=== PATIENT | female | born 1995 | race Caucasian/White ===

== ENCOUNTER → 2018-05-01 16:39 | Outpatient (CLI) | payer OTHER, SELFPAY ==
[2018-05-01 17:44] LABS: Absolute Lymphocyte Count 1.42 X10^3/ul (0.83-4.51); Absolute Neutrophil Count 2.8 X10^3/uL (2.0-7.7); Basophil# 0.01 X10^3/uL; Basophil% 0.2 % (0-1); Eosinophil# 0.01 X10^3/uL; Eosinophils% 0.2 % (0-5); Hematocrit 37.7 % (37-47); Hemoglobin 12.1 g/dl (12.0-15.0); Lymphocyte # 1.42 X10^3/ul (4.0); Lymphocyte % 28.9 % (19-41); Mean Corp Hgb Conc 32.1 g/gl (32-36); Mean Corpuscular Volume 93.3 fL (81-99); Mean Platelet Vol. 10.8 fl (6.2-12.0); Monocyte# 0.64 X10^3/uL; Neutrophil # 2.84 X10^3/uL (2.7-7.7); Neutrophil % 57.7 % (47-70); Platelet Count 176 K/mm3 (150-450); RBC Distribution Width CV 12.7 % (11.6-14.6); RBC Distribution Width SD 43.7 fl (35.1-43.9); Red Blood Count 4.04 M/mm3 (4.2-5.4); White Blood Count 4.9 K/mm3 (4.4-11.0)
[2018-05-01 17:54] LABS: POSITIVE COUNT NO; POSITIVE DIFFERENTIAL NO; POSITIVE MORPHOLOGY NO
[2018-05-01 18:00] LABS: AST(SGOT) 11 U/L (15-37); Alanine Aminotransfer ALT/SGPT 20 U/L (13-56); Alkaline Phosphatase 30 U/L (45-117); BUN 11 mg/dL (7-18); Creatinine, Serum 0.63 mg/dL (0.55-1.02); EST Glomerular Filtration Rate 122 mL/min (>60); Est Glom Filt Rate - Afr Amer 147 mL/min (>60)
== END ==
PROVIDERS: Family Provider Family Medicine; PCP Family Medicine
DX: M32.9 Systemic lupus erythematosus, unspecified (principal)
CPT/HCPCS: 82565; 84075; 84450; 84460; 84520; 85025

== ENCOUNTER → 2018-07-11 16:41 | Outpatient (CLI) | payer OTHER, SELFPAY ==
[2018-07-11 16:56] LABS: Bacteria 0 SEEN /hpf (None Seen); Mucous, Urine 0 SEEN /hpf (<or=2+); Red Blood Cells-Urine 0 SEEN /hpf (0-5); White Blood Cells 0 SEEN /hpf (0-5)
[2018-07-11 17:34] LABS: Absolute Neutrophil Count 2.4 X10^3/uL (2.0-7.7); Basophil# 0.01 X10^3/uL; Basophil% 0.2 % (0-1); Eosinophil# 0.01 X10^3/uL; Eosinophils% 0.2 % (0-5); Hematocrit 37.5 % (37-47); Hemoglobin 12.3 g/dl (12.0-15.0); Lymphocyte % 26.6 % (19-41); Mean Corp Hgb Conc 32.8 g/gl (32-36); Mean Corpuscular Hgb 30.4 pg (27.0-32.0); Mean Corpuscular Volume 92.6 fL (81-99); Mean Platelet Vol. 10.9 fl (6.2-12.0); Monocyte# 0.61 X10^3/uL; Monocyte% 14.8 % (0-10); Neutrophil % 58.2 % (47-70); Platelet Count 181 K/mm3 (150-450); RBC Distribution Width CV 12.5 % (11.6-14.6); RBC Distribution Width SD 42.2 fl (35.1-43.9); Red Blood Count 4.05 M/mm3 (4.2-5.4); White Blood Count 4.1 K/mm3 (4.4-11.0)
[2018-07-11 17:47] LABS: Color, Urine Yellow (Yellow); Erythrocyte Sedimentation Rate 1 mm/hr (0-20); Glucose, Dipstick Normal (Normal); Ketone-Dipstick Negative (Negative); Leukocyte Esterase-Dipstick Negative /ul (Negative); Nitrite-Dipstick Negative (Negative); Occult Blood-Urine Negative /ul (Negative); Protein-Dipstick 15 mg/dl (Negative); Urine Bilirubin Dipstick Negative (Negative); Urine Clarity Clear (Clear); Urine Urobilinogen Normal (Normal)
[2018-07-11 17:51] LABS: POSITIVE COUNT NO; POSITIVE DIFFERENTIAL NO; POSITIVE MORPHOLOGY NO
[2018-07-11 18:03] LABS: AST(SGOT) 11 U/L (15-37); Alanine Aminotransfer ALT/SGPT 18 U/L (13-56); Alkaline Phosphatase 30 U/L (45-117); BUN 12 mg/dL (7-18); CRP < 2.90 mg/L (0.0-3.0); Creatinine, Serum 0.68 mg/dL (0.55-1.02); EST Glomerular Filtration Rate 111 mL/min (>60); Est Glom Filt Rate - Afr Amer 134 mL/min (>60); Squamous Epithelial Cells - UA 0-5 SEEN /hpf (5-10)
[2018-07-15 16:25] LABS: Anti-dsDNA Ab <1 IU/mL (0-9)
[2018-07-16 11:19] LABS: Complement C3 109 mg/dL (82-167)
== END ==
PROVIDERS: Family Provider Family Medicine; PCP Family Medicine
DX: M32.9 Systemic lupus erythematosus, unspecified (principal)
CPT/HCPCS: 36415; 81001; 82565; 84075; 84450; 84460; 84520; 85025; 85652; 86140; 86160; 86225

== ENCOUNTER → 2019-03-07 | Outpatient (CLI) | payer OTHER, SELFPAY ==
[2019-03-07 17:31] LABS: Absolute Lymphocyte Count 0.98 X10^3/ul (0.83-4.51); Absolute Neutrophil Count 2.1 X10^3/uL (2.0-7.7); Basophil# 0.01 X10^3/uL; Basophil% 0.3 % (0-1); Eosinophil# 0.03 X10^3/uL; Eosinophils% 0.8 % (0-5); Hematocrit 36.3 % (37-47); Hemoglobin 12.3 g/dl (12.0-15.0); Lymphocyte # 0.98 X10^3/ul (4.0); Lymphocyte % 26.6 % (19-41); Mean Corp Hgb Conc 33.9 g/gl (32-36); Mean Corpuscular Hgb 31.9 pg (27.0-32.0); Mean Platelet Vol. 11.1 fl (6.2-12.0); Monocyte# 0.57 X10^3/uL; Monocyte% 15.5 % (0-10); Neutrophil # 2.08 X10^3/uL (2.7-7.7); Neutrophil % 56.5 % (47-70); Platelet Count 141 K/mm3 (150-450); RBC Distribution Width CV 12.7 % (11.6-14.6); RBC Distribution Width SD 42.7 fl (35.1-43.9); Red Blood Count 3.86 M/mm3 (4.2-5.4); White Blood Count 3.7 K/mm3 (4.4-11.0)
[2019-03-07 17:42] LABS: POSITIVE COUNT NO; POSITIVE DIFFERENTIAL NO; POSITIVE MORPHOLOGY NO
[2019-03-07 17:51] LABS: Erythrocyte Sedimentation Rate 2 mm/hr (0-20)
[2019-03-07 18:31] LABS: AST(SGOT) 9 U/L (15-37); Alanine Aminotransfer ALT/SGPT 16 U/L (13-56); Alkaline Phosphatase 34 U/L (45-117); BUN 12 mg/dL (7-18); CRP < 2.90 mg/L (0.0-3.0); Creatinine, Serum 0.56 mg/dL (0.55-1.02); EST Glomerular Filtration Rate 138 mL/min (>60); Est Glom Filt Rate - Afr Amer 167 mL/min (>60)
== END | disposition home or self-care (01) ==
LOC: MTLAB 16:46
PROVIDERS: Family Provider Family Medicine; PCP Family Medicine
DX: M32.9 Systemic lupus erythematosus, unspecified (principal)
CPT/HCPCS: 36415; 82565; 84075; 84450; 84460; 84520; 85025; 85652; 86140

== ENCOUNTER → 2020-01-09 | Outpatient (CLI) | payer OTHER, SELFPAY ==
[2020-01-09 18:16] LABS: Chlamydia Trachomatis by PCR Negative (Negative); Neisserai gonorrhoeae by PCR Negative (Negative); Probe Check PASS; Sample Adequacy Control PASS; Specimen Processing Control PASS
== END | disposition home or self-care (01) ==
LOC: LABSPEC 15:31
PROVIDERS: Referring Provider Obstetrics & Gynecology; Visit Provider Obstetrics & Gynecology
DX: Z11.3 Encounter for screening for infections with a predominantly sexual mode of transmission (principal); Z34.81 Encounter for supervision of other normal pregnancy, first trimester
CPT/HCPCS: 87491; 87591

== ENCOUNTER → 2020-01-16 15:23 | Outpatient (CLI) | payer OTHER, SELFPAY ==
[2020-01-16 16:00] LABS: Absolute Lymphocyte Count 0.51 X10^3/uL (0.83-4.51); Absolute Neutrophil Count 3.3 X10^3/uL (2.0-7.7); Basophil# 0.01 X10^3/uL; Basophil% 0.2 % (0-1); Color, Urine Yellow (Yellow); Glucose, Dipstick Normal (Normal); Hematocrit 35.8 % (37-47); Hemoglobin 12.2 g/dL (12.0-15.0); Ketone-Dipstick Negative (Negative); Leukocyte Esterase-Dipstick Negative /ul (Negative); Lymphocyte # 0.51 X10^3/ul (4.0); Lymphocyte % 11.9 % (19-41); Mean Corp Hgb Conc 34.1 g/dL (32-36); Mean Corpuscular Hgb 31.9 pg (27.0-32.0); Mean Corpuscular Volume 93.7 fL (81-99); Mean Platelet Vol. 10.4 fl (6.2-12.0); Monocyte# 0.48 X10^3/uL; Monocyte% 11.2 % (0-10); NRBC Flagged by Analyzer 0 % (0-5); Neutrophil # 3.25 X10^3/uL (2.7-7.7); Neutrophil % 76.2 % (47-70); Nitrite-Dipstick Negative (Negative); Occult Blood-Urine Negative /ul (Negative); POSITIVE DIFFERENTIAL YES; Platelet Count 179 K/mm3 (150-450); Protein-Dipstick Negative (Negative); RBC Distribution Width CV 12.7 % (11.6-14.6); RBC Distribution Width SD 43.6 fl (35.1-43.9); Red Blood Count 3.82 M/mm3 (4.2-5.4); Specific Gravity, Urine 1.015 (1.002-1.030); Urine Bilirubin Dipstick Negative (Negative); Urine Clarity Sl. Cloudy (Clear); Urine Urobilinogen Normal (Normal); Urine pH 6.5 (5.0 - 8.0); White Blood Count 4.3 K/mm3 (4.4-11.0)
[2020-01-16 16:02] LABS: Differential Indicated SCAN CRITERIA MET
[2020-01-16 16:12] LABS: Amphetamine Urine VISTA NEGATIVE (<1000 ng/mL); Barbiturate Urine VISTA NEGATIVE (< 200 ng/mL); Benzodiazepine Urine VISTA NEGATIVE (< 200 ng/mL); Cocaine Urine VISTA NEGATIVE (< 300 ng/mL); Ecstacy Urine VISTA NEGATIVE (< 500 ng/mL); Methadone Urine VISTA NEGATIVE (< 300 ng/mL); PCP Urine VISTA NEGATIVE (< 25 ng/mL); THC Urine VISTA NEGATIVE (< 50 ng/mL); Vista UDS pH Range 6
[2020-01-16 16:15] LABS: Protein, Urine (Random) 18.9 mg/dL (<11.9); Protein:Creat Ratio 296 mg/g CRE (0-200)
[2020-01-16 16:34] LABS: AST(SGOT) 10 U/L (15-37); Alanine Aminotransfer ALT/SGPT 17 U/L (13-56); Albumin, Serum 3.8 g/dL (3.2-5.0); Alkaline Phosphatase 34 U/L (45-117); Anion Gap 6 (5-15); BUN 12 mg/dL (7-18); BUN/Creat Ratio 26.1 RATIO (10-20); Calcium,Total 8.5 mg/dL (8.5-10.1); Chloride 105 mmol/L (98-107); Creatinine, Serum 0.46 mg/dL (0.55-1.02); EST Glomerular Filtration Rate 174 mL/min (>60); Est Glom Filt Rate - Afr Amer 210 mL/min (>60); Globulin 3.9 g/dL (2.2-4.2); Glucose 93 mg/dL (74-106); Potassium 3.5 mmol/L (3.5-5.1); Protein, Total 7.7 g/dL (6.4-8.2); Sodium Level 138 mmol/L (136-145); Thyroid Stim Hormone (TSH) 0.82 uIU/mL (0.358-3.74)
[2020-01-16 16:45] LABS: Platelet Estimate ADEQUATE (ADEQ)
[2020-01-16 16:46] LABS: Anisocytosis RARE; Red Cell Morphology N CHROM NORMAL (NORM C&C)
[2020-01-18 08:10] LABS: Complement C3 86 mg/dL (82-167)
[2020-01-19 09:07] LABS: HIV - WCH Non-Reactive (Nonreactive); Hepatitis B Surface Antigen Non-Reactive (Nonreactive); Hepatitis C Antibody Non-Reactive (Nonreactive); Rubella IgG 22.5 IU/mL
[2020-01-19 10:24] LABS: Pathologist Review Reviewed
[2020-01-19 14:07] LABS: SJOGREN'S Anti-SS-A test > 8.0 AI (0.0-0.9)
[2020-01-19 15:01] LABS: SJOGREN'S Anti-SS-B test > 8.0 AI (0.0-0.9)
[2020-01-21 23:59] LABS: Prenatal RPR NONREACTIVE (NONREACTIVE)
== END ==
PROVIDERS: PCP Family Medicine; Referring Provider Obstetrics & Gynecology; Visit Provider Obstetrics & Gynecology
DX: O99.89 Other specified diseases and conditions complicating pregnancy, childbirth and the puerperium (principal); M32.9 Systemic lupus erythematosus, unspecified; Z3A.00 Weeks of gestation of pregnancy not specified
CPT/HCPCS: 36415; 80053; 80307; 81002; 82570; 84156; 84443; 85025; 86160; 86235; 86703; 86762; 86803; 87340

== ENCOUNTER → 2020-02-09 10:25 | Outpatient (CLI) | payer OTHER, SELFPAY ==
[2020-02-09 11:39] LABS: NATERA MAILED SPECIMEN
== END ==
PROVIDERS: PCP Family Medicine
DX: O09.899 Supervision of other high risk pregnancies, unspecified trimester (principal); O99.89 Other specified diseases and conditions complicating pregnancy, childbirth and the puerperium; M32.9 Systemic lupus erythematosus, unspecified; Z3A.00 Weeks of gestation of pregnancy not specified
CPT/HCPCS: 36415

== ENCOUNTER → 2020-02-11 15:07 | Outpatient (CLI) | payer OTHER, SELFPAY ==
[2020-02-11 17:14] LABS: Glucose Challenge Gest 1H 50g 152 mg/dL (70-140)
== END ==
PROVIDERS: PCP Family Medicine; Referring Provider Obstetrics & Gynecology; Visit Provider Obstetrics & Gynecology
DX: Z34.81 Encounter for supervision of other normal pregnancy, first trimester (principal)
CPT/HCPCS: 36415; 82950

== ENCOUNTER → 2020-02-25 06:42 | Outpatient (CLI) | payer OTHER, SELFPAY ==
[2020-02-25 07:18] LABS: Glucose GTT-Gestation. Fasting 83 mg/dL (<105)
[2020-02-25 08:19] LABS: Glucose GTT-Gestational 1 Hr 126 mg/dL (<190)
[2020-02-25 09:43] LABS: Glucose GTT-Gestational 2 Hr 92 mg/dL (<165)
[2020-02-25 10:35] LABS: Glucose GTT-Gestational 3 Hr 50 L (<145)
== END ==
PROVIDERS: PCP Family Medicine; Referring Provider Obstetrics & Gynecology; Visit Provider Obstetrics & Gynecology
DX: O24.912 Unspecified diabetes mellitus in pregnancy, second trimester (principal)
CPT/HCPCS: 36415; 82951; 82952

== ENCOUNTER → 2020-03-17 16:33 | Outpatient (CLI) | payer OTHER, SELFPAY ==
[2020-03-17 18:18] LABS: Absolute Lymphocyte Count 0.54 X10^3/uL (0.83-4.51); Absolute Neutrophil Count 4.3 X10^3/uL (2.0-7.7); Basophil# 0.01 X10^3/uL; Basophil% 0.2 % (0-1); Eosinophil# 0.01 X10^3/uL; Eosinophils% 0.2 % (0-5); Hematocrit 34.1 % (37-47); Hemoglobin 11.3 g/dL (12.0-15.0); Lymphocyte # 0.54 X10^3/ul (4.0); Lymphocyte % 9.9 % (19-41); Mean Corp Hgb Conc 33.1 g/dL (32-36); Mean Corpuscular Hgb 32.7 pg (27.0-32.0); Mean Corpuscular Volume 98.6 fL (81-99); Mean Platelet Vol. 10.3 fl (6.2-12.0); Monocyte# 0.56 X10^3/uL; Monocyte% 10.3 % (0-10); NRBC Flagged by Analyzer 0 % (0-5); Neutrophil # 4.29 X10^3/uL (2.7-7.7); POSITIVE DIFFERENTIAL YES; Platelet Count 214 K/mm3 (150-450); RBC Distribution Width CV 13.3 % (11.6-14.6); Red Blood Count 3.46 M/mm3 (4.2-5.4); White Blood Count 5.4 K/mm3 (4.4-11.0)
[2020-03-17 18:26] LABS: Differential Indicated SCAN CRITERIA MET
[2020-03-17 18:27] LABS: Color, Urine Yellow (Yellow); Glucose, Dipstick Normal (Normal); Ketone-Dipstick Negative (Negative); Leukocyte Esterase-Dipstick Negative /ul (Negative); Nitrite-Dipstick Negative (Negative); Occult Blood-Urine Negative /ul (Negative); Protein-Dipstick Negative (Negative); Urine Bilirubin Dipstick Negative (Negative); Urine Clarity Clear (Clear); Urine Urobilinogen Normal (Normal)
[2020-03-17 18:30] LABS: Protein, Urine (Random) 7.7 mg/dL (<11.9); Protein:Creat Ratio 213 mg/g CRE (0-200)
[2020-03-17 18:41] LABS: AST(SGOT) 13 U/L (15-37); Alanine Aminotransfer ALT/SGPT 18 U/L (13-56); Alkaline Phosphatase 33 U/L (45-117); BUN 9 mg/dL (7-18); CRP < 2.90 mg/L (0.0-3.0); Creatinine, Serum 0.48 mg/dL (0.55-1.02); EST Glomerular Filtration Rate 164 mL/min (>60); Est Glom Filt Rate - Afr Amer 198 mL/min (>60)
[2020-03-17 18:49] LABS: Vitamin D,25 Hydroxy 38.2 ng/mL
[2020-03-17 19:24] LABS: Platelet Estimate ADEQUATE (ADEQ); Red Cell Morphology NORM C+C NORMAL (NORM C&C)
[2020-03-17 20:35] LABS: Erythrocyte Sedimentation Rate 4 mm/hr (0-20)
[2020-03-19 12:33] LABS: Complement C3 98 mg/dL (82-167)
[2020-03-22 05:26] LABS: Anti-dsDNA Ab <1 IU/mL (0-9)
== END ==
PROVIDERS: PCP Family Medicine
DX: M32.9 Systemic lupus erythematosus, unspecified (principal)
CPT/HCPCS: 36415; 81002; 82306; 82565; 82570; 84075; 84156; 84450; 84460; 84520; 85025; 85652; 86140; 86160; 86225

== ENCOUNTER → 2020-05-27 06:51 | Outpatient (CLI) | payer OTHER, SELFPAY | PROVIDERS: PCP Family Medicine; Referring Provider Obstetrics & Gynecology; Visit Provider Obstetrics & Gynecology | DX: O99.113 Other diseases of the blood and blood-forming organs and certain disorders involving the immune mechanism complicating pregnancy, third trimester (principal); M32.9 Systemic lupus erythematosus, unspecified; O99.810 Abnormal glucose complicating pregnancy; Z3A.00 Weeks of gestation of pregnancy not specified ==

== ENCOUNTER → 2020-05-27 06:58 | Outpatient (CLI) | payer OTHER, SELFPAY ==
[2020-05-27 07:48] LABS: Glucose GTT-Gestation. Fasting 82 mg/dL (<105)
[2020-05-27 08:54] LABS: Glucose GTT-Gestational 1 Hr 109 mg/dL (<190)
[2020-05-27 09:25] LABS: Glucose GTT-Gestational 2 Hr 81 mg/dL (<165)
[2020-05-27 11:08] LABS: Glucose GTT-Gestational 3 Hr 43 L (<145)
== END ==
PROVIDERS: PCP Family Medicine; Referring Provider Obstetrics & Gynecology; Visit Provider Obstetrics & Gynecology
DX: O99.113 Other diseases of the blood and blood-forming organs and certain disorders involving the immune mechanism complicating pregnancy, third trimester (principal); M32.9 Systemic lupus erythematosus, unspecified; O99.810 Abnormal glucose complicating pregnancy; Z3A.00 Weeks of gestation of pregnancy not specified
CPT/HCPCS: 36415; 82951; 82952

== ENCOUNTER → 2020-06-11 09:36 | Outpatient (CLI) | payer OTHER, SELFPAY ==
[2020-06-11 10:50] LABS: AST(SGOT) 16 U/L (15-37); Alanine Aminotransfer ALT/SGPT 18 U/L (13-56); Albumin, Serum 2.7 g/dL (3.2-5.0); Alkaline Phosphatase 55 U/L (45-117); Bilirubin, Direct 0.11 mg/dL (0.00-0.30); Globulin 4.3 g/dL (2.2-4.2)
== END ==
PROVIDERS: PCP Family Medicine; Visit Provider Student in an Organized Health Care Education/Training Program
DX: O99.713 Diseases of the skin and subcutaneous tissue complicating pregnancy, third trimester (principal); L50.9 Urticaria, unspecified; Z3A.00 Weeks of gestation of pregnancy not specified
CPT/HCPCS: 36415; 80076; 86850; 86900; 86901

== ENCOUNTER → 2020-07-30 | Outpatient (CLI) | payer OTHER, SELFPAY | END | disposition home or self-care (01) | LOC: LABSPEC 10:50 | PROVIDERS: PCP Family Medicine; Visit Provider Obstetrics & Gynecology | DX: Z36.85 Encounter for antenatal screening for Streptococcus B (principal) | CPT/HCPCS: 87081 ==

== ENCOUNTER → 2020-08-13 09:25 | Outpatient (CLI) | payer OTHER, SELFPAY | PROVIDERS: PCP Family Medicine; Referring Provider Obstetrics & Gynecology; Visit Provider Obstetrics & Gynecology | DX: Z03.818 Encounter for observation for suspected exposure to other biological agents ruled out (principal) | CPT/HCPCS: 87635; C9803; U0003 ==

== ENCOUNTER 2020-08-19 05:52 | Inpatient (IN) | payer OTHER, SELFPAY ==
[2020-08-19] VITALS (57 sets, daily range): BP systolic 112–143; BP diastolic 55–81; PULSE 74–107; TEMP 37.1–37.7; O2SAT 83–99; BMI 25.2
[2020-08-19] MEDS: Lactated Ringers 500 ML 999 ML IV (06:05)
[2020-08-19 06:34] LABS: Absolute Neutrophil Count 6.9 X10^3/uL (2.0-7.7); Basophil# 0.02 X10^3/uL; Basophil% 0.2 % (0-1); Eosinophil# 0.01 X10^3/uL; Eosinophils% 0.1 % (0-5); Hematocrit 37.9 % (37-47); Hemoglobin 13.3 g/dL (12.0-15.0); Lymphocyte % 6.1 % (19-41); Mean Corp Hgb Conc 35.1 g/dL (32-36); Mean Corpuscular Hgb 33.5 pg (27.0-32.0); Mean Corpuscular Volume 95.5 fL (81-99); Mean Platelet Vol. 11.4 fl (6.2-12.0); Monocyte# 0.71 X10^3/uL; Monocyte% 8.7 % (0-10); NRBC Flagged by Analyzer 0 % (0-5); Neutrophil % 84.5 % (47-70); POSITIVE DIFFERENTIAL YES; Platelet Count 236 K/mm3 (150-450); RBC Distribution Width CV 12.4 % (11.6-14.6); RBC Distribution Width SD 43.6 fl (35.1-43.9); Red Blood Count 3.97 M/mm3 (4.2-5.4); White Blood Count 8.2 K/mm3 (4.4-11.0)
[2020-08-19] MEDS: Lactated Ringers 1,000 ML 200 ML IV ×3 (06:36→16:35)
[2020-08-19 06:54] LABS: Differential Indicated SCAN CRITERIA MET
--- NOTE | 2020-08-19 06:59 | PCM.HP.OB ---
- Problem List (1) 39 weeks gestation of Status: Acute (2) SLE (systemic lupus erythematosus) Status: Acute Qualifiers: Systemic lupus erythematosus type: unspecified History Date of Admission: 08/19/20 Final GUADALUPE: 08/26/20 Final GUAD[facility]UPE Source: [place] <20 weeks Gestational age: 39 Weeks and 0 Days History of this : This is a 25 year-old, G [1], P [], at 39 weeks gestational age with hx SLE on chronic steroid therapy presenting with painful contractions. Medical History: Medical History (This Medical Record has been edited. Action required.) SLE (systemic lupus erythematosus) M32.9 +Anti SSA/SSB Allergies No Known Allergies Allergy (Verified 08/19/20 04:02) Home Medications: Home Medications Azathioprine [Imuran] 150 mg PO DAILY@0800 08/19/20 Plaquenil 200 mg PO DAILY 08/19/20 Prednisone 1 tab PO DAILY 08/19/20 Smoking Status: Never smoker Alcohol: None Substance Use Type: Sleep Aides Number of Fetus(es): 1 History Past Pregnancies: Past Pregnancies Delivery Date Name GA/ Weeks Outcome Route Wt Infant Sex Labor Length Anesthesia Delivery Location Provider FOB Labs: Mom's Labs & Results 08/19/20 08/19/20 06:05 06:05 WBC 8.2 RBC 3.97 L Hgb 13.3 Hct 37.9 MCV 95.5 MCH 33.5 H MCHC 35.1 RDW Std Deviation 43.6 RDW Coeff of Yasir 12.4 Plt Count 236 MPV 11.4 Immature Gran % (Auto) 0.400 Neut % (Auto) 84.5 H Lymph % (Auto) 6.1 L [place] % (Auto) 8.7 Eos % (Auto) 0.1 Baso % (Auto) 0.2 Absolute Neuts (auto) 6.9 Absolute Lymphs (auto) 0.50 L Nucleated RBC % 0 Blood Type Pending Antibody Screen Pending Course Did the patient receive Yes care? Labs Blood Type: AB RH: POSITIVE RPR/VDRL/Syphilis Nonreactive Rubella status Immune HbSAg Negative Date Done: 01/16/20 Chlamydia Negative Gonorrhea Negative HIV/AIDS Non-Reactive Group B Strep: Negative Current Obstetrical History Gestational Diabetes No Incompetent Cervix No Infertility No IUGR No Macrosomia No Hypertension/Pre-eclampsia No Placenta Previa/Abruption No PTL/PROM No Uterine anomaly No Oligohydramnios No Polyhydramnios No Multiple gestation No Past Medical History Asthma No Diabetes No Hypertension No Heart disease No Mitral valve prolapse No Neurologic/Seizure disorder/ No Migraines Kidney disease No Liver disease No Varicosities Yes Clotting disorders/Hx of DVT No Thyroid Dysfunction No Other medical diseases Yes: Lupus Psychiatric disorders No Major trauma No Abnormal PAP smear No Sleep apnea No Mammogram in the last 2 years No Social History Marital Status: Alleged father Martinez Moya Hx Smoking No Smoking Status Never smoker Substance Use Type Sleep Aides How long have you used since taking Unisom, takes 1-2/week substances (years)? What date/time did you last 08/18/200 use any of the above? Expected Delivery Method: Spontaneous Vaginal Number of Visits: 11 Physical Exam Vitals: Vital Signs Pulse BP Pulse Ox 90 130/77 H 98 08/19/20 04:47 08/19/20 04:47 08/19/20 03:34 Assessment/Plan All Active Problems (This Medical Record has been edited. Action required.) 39 weeks gestation of (Acute) SLE (systemic lupus erythematosus) (Acute) This is a 25 year-old, G [1], P [], at 39 weeks gestational age. -Stress dose steroids - Epidural per patient request - GBS neg - Maternal and statuses reassuring
[2020-08-19 07:03] LABS: Differential Comment SCANNED
[2020-08-19] MEDS: Hydrocortisone Sod Succinate 100 MG/2 ML Vial 50 MG IV ×3 (08:06→20:35)
[2020-08-19] MEDS: fentaNYL-bupivacaine (epidural) 100 ML BAG EPIDURAL ×3 (08:15→18:56)
--- NOTE | 2020-08-19 13:07 | PCM.PN.BLA ---
Progress Note LABOR PROGRESS NOTE Comfortable with epidural. No complaints. AVSS GEN - NAD, AAO x 3 FHR 135, moderate variability, + accelerations, no decelerations TOCO 3/10 min SVE 6/90/-2, soft and anterior A/P: 25yo G1 @ 39wga, active labor, Cat I FHR -Amniotomy performed with clear fluid -Continue in labor -Maternal and statuses reassuring STROKE Vital Signs/Narrative: Vital Signs Temp Pulse BP Pulse Ox 08/19/20 13:05 99.5 F H 74 114/58 L 96 08/19/20 12:08 99.8 F H 89 96 08/19/20 12:07 90 112/60 08/19/20 11:00 99.5 F H 96 125/73 H 08/19/20 09:51 99.1 F 91 124/63 H 08/19/20 09:15 99.5 F H 08/19/20 09:12 86 97 08/19/20 09:11 81 123/61 H
[2020-08-19] MEDS: Oxytocin 30 units/NS 500 ml 30 UNITS/500 ML IV.SOLN 334 UNITS IV (20:23)
[2020-08-19] MEDS: 0.9% Saline Lock 10 ML Syringe IV (20:35)
--- NOTE | 2020-08-19 21:08 | OP.PCM_ITS ---
Vaginal Delivery Date of Procedure: 08/19/20 Pre-Operative Diagnosis: Term Post-Operative Diagnosis: Term Surgery/ Procedure Performed: Spontaneous Vaginal Delivery Type of Anesthesia: Epidural Description of Procedure: Normal spontaneous vaginal delivery of a viable female infant, vertex TERRY. Head and shoulders delivered with ease. Cord cut and clamped. Baby handed off to nursing. Placenta delivered via cord traction and fundal massage. Second- degree laceration and bilateral labial laceration noted and repaired in typical fashion. EBL 400 cc Apgars 8/9
--- NOTE | 2020-08-19 21:10 | DCINST_ITS ---
<Renato Moya - Last Filed: 08/19/20 21:10> Discharge Diet: No Restrictions Discharge Activity: Return to Normal Activity, No Restrictions, May Drive, May Shower May resume sexual activity in: 2 weeks Weight Bearing Status: Weight bearing as tolerated Call your doctor if your incision/area has: Foul Smelling Discharge Call your doctor if you observe: Fever of 101 or Higher, Shortness of breath, Chest pain Additional Instructions: If you experience any of the following, contact your healthcare provider. * Bleeding that soaks a pad every hour for 2 hours * Fever 100.4 or higher * Unrelieved incision or abdominal pain * Swelling, redness, discharge or bleeding from your incision or episiotomy site * Your incision begins to separate * Problems urinating (including inability to urinate or burning while urinating). * Visual changes * Severe headache * Flu-like symptoms * Pain or redness in one of both of your breasts * Pain, warmth, tenderness or swelling in your legs, especially the calf area * Frequent nausea and vomiting * Symptoms of depression or anxiety If you experience any of the following, call 911 or go to the nearest Emergency Room. * Chest pain * Problems breathing * Seizure activity * Partial or complete paralysis of a body part, slurred speech, weakness or drooping of the face, or a sudden inability to walk or hold your balance Allergies/Adverse Reactions: Allergies No Known Allergies Allergy (Verified 08/19/20 04:02) Medications to take at Discharge Azathioprine [Imuran] 150 mg PO DAILY@0800 08/19/20 Plaquenil 200 mg PO DAILY 08/19/20 Prednisone 1 tab PO DAILY 08/19/20 Ibuprofen [Motrin] 600 mg PO Q8H PRN #30 tab 08/21/20 Please Follow Up With: Pallavi Mcclellan MD When: 6 weeks Primary Care Physician: Kike Degroot MD [Primary Care Provider] - Test Results: Test results from this visit will be discussed in further detail at your follow- up appointment, if applicable. <Pallavi Mcclellan - Last Filed: 08/21/20 08:02> Additional Instructions: If you experience any of the following, contact your healthcare provider. * Bleeding that soaks a pad every hour for 2 hours * Fever 100.4 or higher * Unrelieved incision or abdominal pain * Swelling, redness, discharge or bleeding from your incision or episiotomy site * Your incision begins to separate * Problems urinating (including inability to urinate or burning while urinating). * Visual changes * Severe headache * Flu-like symptoms * Pain or redness in one of both of your breasts * Pain, warmth, tenderness or swelling in your legs, especially the calf area * Frequent nausea and vomiting * Symptoms of depression or anxiety If you experience any of the following, call 911 or go to the nearest Emergency Room. * Chest pain * Problems breathing * Seizure activity * Partial or complete paralysis of a body part, slurred speech, weakness or drooping of the face, or a sudden inability to walk or hold your balance Please Follow Up With: Pallavi Mcclellan MD - mood check When: 1-3 weeks Test Results: Test results from this visit will be discussed in further detail at your follow- up appointment, if applicable.
[2020-08-19] MEDS: Ibuprofen 600 MG Tablet PO (22:08)
[2020-08-20 00:47] VITALS: BP 114/63; PULSE 90; RESP 16; TEMP 37.1; O2SAT 95
[2020-08-20 03:07] VITALS: BP 114/59; PULSE 89; RESP 16; TEMP 36.9
[2020-08-20] MEDS: 0.9% Saline Lock 10 ML Syringe IV (05:03)
[2020-08-20] MEDS: Enoxaparin 40 MG/0.4 ML Syringe SC (05:03)
[2020-08-20] MEDS: Hydrocortisone Sod Succinate 100 MG/2 ML Vial 25 MG IV (05:03)
[2020-08-20 07:50] VITALS: BP 118/66; PULSE 67; RESP 16; TEMP 36.3; O2SAT 98
--- NOTE | 2020-08-20 08:30 | PN.OBGYN_ITS ---
Patient Problems: Active and Suspected Problems (This Medical Record has been edited. Action required.) 39 weeks gestation of (Acute) SLE (systemic lupus erythematosus) (Acute) Subjective: No issues overnight. Infant latches and is going well. Denies heavy lochia. She has some cramping and is sore a the perineum, but this is manageable. OOB and voiding without difficulty. Objective: AVSS - Physical Exam Vitals/I&O's: Vital Signs Temp Pulse Resp BP Pulse Ox 98.0 F 80 15 112/72 99 08/20/20 16:00 08/20/20 16:00 08/20/20 16:00 08/20/20 16:00 08/20/20 11:33 Oxygen Delivery Method Room Air Weight: 84.368 kg Body Mass Index (BMI) 25.2 Intake and Output for Last 24 Hours 08/18/20 08/19/20 08/20/20 23:59 23:59 23:59 Intake Total 4798.33 / 4798.33 Output Total 2100 / 2100 800 / 800 Balance 2698.33 / 2698.33 -800 / -800 General: Alert, Oriented x3, Cooperative, No apparent distress HEENT: Atraumatic, Normocephalic Lungs: Clear to auscultation, Normal air movement Cardiovascular: Regular rate, Regular Rhythm, Normal S1, Normal S2 Abdomen: Soft, Non Tender, Non-Distended, - - Fundus firm and nontender at 2 fw below umbilicus, lochia moderate Extremities: No Calf Tenderness, - - trace LE edema Neurological: Neuro grossly intact Psych/Mental Status: Normal Affect, Appropriate, Alert and oriented to time, place, person, mood and affect Current Medications Acetaminophen (Acetaminophen 500 Mg Tablet) 1,000 mg PO Q8H PRN PRN PRN Reason: Pain Score 1-10 Last Admin: 08/20/20 14:12 Dose: 1,000 mg Documented by: Bisacodyl (Bisacodyl 10 Mg Suppository) 10 mg RECTAL UD PRN PRN Reason: If no BM Dibucaine (Dibucaine 30 Gm Tube) 1 applic TOPICAL TID PRN PRN; Protocol PRN Reason: Discomfort Enoxaparin Sodium (Enoxaparin 40 Mg/0.4 Ml Syringe) 40 mg SC Q24H [facility] Last Admin: 08/20/20 05:03 Dose: 40 mg Documented by: Hydrocortisone (Hydrocortisone 2.5% Crm) 1 applic TOPICAL TID PRN PRN; Protocol PRN Reason: Discomfort Ibuprofen (Ibuprofen 600 Mg Tablet) 600 mg PO Q6H PRN PRN PRN Reason: Pain Score 1-10 Last Admin: 08/20/20 09:22 Dose: 600 mg Documented by: Ondansetron HCl (Ondansetron 4 Mg/2 Ml Vial) 4 mg IV Q4H PRN PRN PRN Reason: Nausea Senna/Docusate Sodium (Senna/Docusate Sodium 1 Tablet) 1 - 2 tablet PO DAILY PRN PRN PRN Reason: Constipation Simethicone (Simethicone 80 Mg Tablet) 80 mg PO PCHS PRN PRN Reason: Indigestion/Stomach pain Sodium Chloride (0.9% Saline Lock 10 Ml Syringe) 5 - 15 ml IV UD PRN PRN Reason: SALINE FLUSH Last Admin: 08/20/20 05:03 Dose: 10 ml Documented by: Throat Lozenges (Benzocaine/Lanolin/Aloe Vera 1 Applic Each) 1 applic TOPICAL TID PRN PRN; Protocol PRN Reason: Pain/Inflammation Last Admin: 08/20/20 05:03 Dose: 1 applic Documented by: Medical Necessity - Tobacco Use Smoking Status: Never smoker Assessment/Plan All Active Problems (This Medical Record has been edited. Action required.) 39 weeks gestation of (Acute) SLE (systemic lupus erythematosus) (Acute) This is a 25 year-old, G [1], P [1001] PPD#1 s/p doing well. -Completed stress dose steroids. -Will continue Lovenox ppx inpatient given hx SLE - -Rh positive -Routine care
[2020-08-20] MEDS: Ibuprofen 600 MG Tablet PO ×2 (09:22→20:53)
[2020-08-20 11:33] VITALS: BP 115/50; PULSE 80; RESP 16; TEMP 36.8; O2SAT 99
[2020-08-20] MEDS: Acetaminophen 500 MG Tablet 1000 MG PO (14:12)
[2020-08-20 16:00] VITALS: BP 112/72; PULSE 80; RESP 15; TEMP 36.7
[2020-08-20 20:55] VITALS: BP 116/64; PULSE 92; RESP 16; TEMP 36.8
[2020-08-21 01:00] VITALS: BP 116/67; PULSE 78; RESP 16; TEMP 36.2
[2020-08-21] MEDS: Acetaminophen 500 MG Tablet 1000 MG PO ×2 (01:10→10:46)
[2020-08-21] MEDS: Ibuprofen 600 MG Tablet PO ×2 (02:33→10:44)
[2020-08-21] MEDS: Enoxaparin 40 MG/0.4 ML Syringe SC (05:12)
[2020-08-21 08:12] VITALS: BP 127/76; PULSE 84; RESP 14; TEMP 36.8
--- NOTE | 2020-08-21 09:16 | PN.OBGYN_ITS ---
Patient Problems: Active and Suspected Problems (This Medical Record has been edited. Action required.) 39 weeks gestation of (Acute) SLE (systemic lupus erythematosus) (Acute) Subjective: Feels fullness in the vaginal area when standing as if everything is falling out. Reports some swelling persists. No other complains. Denies heavy lochia or abdominal pain. Objective: avss - Physical Exam Vitals/I&O's: Vital Signs Temp Pulse Resp BP Pulse Ox 98.3 F 84 14 127/76 H 99 08/21/20 08:12 08/21/20 08:12 08/21/20 08:12 08/21/20 08:12 08/20/20 11:33 Oxygen Delivery Method Room Air Weight: 84.368 kg Body Mass Index (BMI) 25.2 Intake and Output for Last 24 Hours 08/19/20 08/20/20 08/21/20 23:59 23:59 23:59 Intake Total 4798.33 / 4798.33 Output Total 2100 / 2100 800 / 800 Balance 2698.33 / 2698.33 -800 / -800 General: Alert, Oriented x3, Cooperative, No apparent distress HEENT: Atraumatic, Normocephalic Lungs: Clear to auscultation, Normal air movement Cardiovascular: Regular rate, Regular Rhythm, Normal S1, Normal S2 Abdomen: Soft, Non Tender, Non-Distended, - - Fundus firm and nontender Extremities: No Calf Tenderness, - - b/l pedal, ankle edema - nonpitting Neurological: Neuro grossly intact Psych/Mental Status: Normal Affect, Appropriate, Alert and oriented to time, place, person, mood and affect Comment: Mild to moderate vulvar edema Current Medications Acetaminophen (Acetaminophen 500 Mg Tablet) 1,000 mg PO Q8H PRN PRN PRN Reason: Pain Score 1-10 Last Admin: 08/21/20 01:10 Dose: 1,000 mg Documented by: Bisacodyl (Bisacodyl 10 Mg Suppository) 10 mg RECTAL UD PRN PRN Reason: If no BM Dibucaine (Dibucaine 30 Gm Tube) 1 applic TOPICAL TID PRN PRN; Protocol PRN Reason: Discomfort Enoxaparin Sodium (Enoxaparin 40 Mg/0.4 Ml Syringe) 40 mg SC Q24H [facility] Last Admin: 08/21/20 05:12 Dose: 40 mg Documented by: Hydrocortisone (Hydrocortisone 2.5% Crm) 1 applic TOPICAL TID PRN PRN; Protocol PRN Reason: Discomfort Ibuprofen (Ibuprofen 600 Mg Tablet) 600 mg PO Q6H PRN PRN PRN Reason: Pain Score 1-10 Last Admin: 08/21/20 02:33 Dose: 600 mg Documented by: Ondansetron HCl (Ondansetron 4 Mg/2 Ml Vial) 4 mg IV Q4H PRN PRN PRN Reason: Nausea Senna/Docusate Sodium (Senna/Docusate Sodium 1 Tablet) 1 - 2 tablet PO DAILY PRN PRN PRN Reason: Constipation Simethicone (Simethicone 80 Mg Tablet) 80 mg PO PCHS PRN PRN Reason: Indigestion/Stomach pain Sodium Chloride (0.9% Saline Lock 10 Ml Syringe) 5 - 15 ml IV UD PRN PRN Reason: SALINE FLUSH Last Admin: 08/20/20 05:03 Dose: 10 ml Documented by: Throat Lozenges (Benzocaine/Lanolin/Aloe Vera 1 Applic Each) 1 applic TOPICAL TID PRN PRN; Protocol PRN Reason: Pain/Inflammation Last Admin: 08/20/20 05:03 Dose: 1 applic Documented by: Medical Necessity - Tobacco Use Smoking Status: Never smoker Assessment/Plan All Active Problems (This Medical Record has been edited. Action required.) 39 weeks gestation of (Acute) SLE (systemic lupus erythematosus) (Acute) This is a 25 year-old, G [1], P [1001] PPD#2 s/p doing well. - -Rh positive -Routine care -d/c home today
[2020-08-21 11:54] VITALS: BP 122/73; PULSE 100; RESP 14; TEMP 37.1
--- NOTE | 2020-08-25 17:28 | NURSING ---
mother doing well, breasts are full and baby is nursing well at the follow up phone call .
== END 2020-08-21 12:15 | disposition home or self-care (01) | DRG 807 ==
LOC: WPOUT 05:55 → WP 05:55
PROVIDERS: Admitting Provider Obstetrics & Gynecology; PCP Family Medicine; Referring Provider Obstetrics & Gynecology; Visit Provider Obstetrics & Gynecology
DX: O99.892 Other specified diseases and conditions complicating childbirth (principal); Z37.0 Single live birth; M32.9 Systemic lupus erythematosus, unspecified; O70.1 Second degree perineal laceration during delivery; Z3A.39 39 weeks gestation of pregnancy; Z79.52 Long term (current) use of systemic steroids
CPT/HCPCS: 59025; 59050; 85025; 86850; 86900; 86901; 99218; J7120; A4216; G0378; J3490

== ENCOUNTER 2021-12-16 15:13 | Outpatient (CLI) | payer OTHER, SELFPAY ==
[2021-12-16 16:40] LABS: hCG Titer Quant., Serum < 1 mIU/mL (1-3)
[2021-12-16 16:41] LABS: Progesterone Level 32.26 ng/mL (See Comment)
== END 2021-12-16 23:59 | disposition home or self-care (01) ==
LOC: WOBLAB 15:14
PROVIDERS: PCP Family Medicine; Visit Provider Obstetrics & Gynecology
DX: Z32.00 Encounter for pregnancy test, result unknown (principal); N92.6 Irregular menstruation, unspecified
CPT/HCPCS: 36415; 84144; 84702

== ENCOUNTER → 2022-03-16 | Outpatient (CLI) | payer OTHER, SELFPAY ==
[2022-03-24 19:27] LABS: HPV Reflexed? NOT INDICATED
== END | disposition home or self-care (01) ==
LOC: WOBLAB 14:08
PROVIDERS: PCP Family Medicine; Visit Provider Obstetrics & Gynecology
DX: Z12.4 Encounter for screening for malignant neoplasm of cervix (principal)
CPT/HCPCS: 88175; G0145

== ENCOUNTER → 2022-08-02 | Outpatient (CLI) | payer MEDICAID, SELFPAY ==
[2022-08-02 10:03] LABS: Amphetamine Urine VISTA NEGATIVE (<1000 ng/mL); Barbiturate Urine VISTA NEGATIVE (< 200 ng/mL); Benzodiazepine Urine VISTA NEGATIVE (< 200 ng/mL); Cocaine Urine VISTA NEGATIVE (< 300 ng/mL); Ecstacy Urine VISTA NEGATIVE (< 500 ng/mL); Methadone Urine VISTA NEGATIVE (< 300 ng/mL); PCP Urine VISTA NEGATIVE (< 25 ng/mL); THC Urine VISTA NEGATIVE (< 50 ng/mL); Vista UDS pH Range 7
[2022-08-02 10:34] LABS: Absolute Lymphocyte Count 1.17 X10^3/uL (0.83-4.51); Absolute Neutrophil Count 3.1 X10^3/uL (2.0-7.7); Basophil# 0.01 X10^3/uL; Basophil% 0.2 % (0-1); Eosinophil# 0.02 X10^3/uL; Eosinophils% 0.4 % (0-5); Hematocrit 36.6 % (37-47); Hemoglobin 12.7 g/dL (12.0-15.0); Lymphocyte # 1.17 X10^3/ul (0.83-4.51); Lymphocyte % 23.9 % (19-41); Mean Corp Hgb Conc 34.7 g/dL (32-36); Mean Corpuscular Hgb 30.8 pg (27.0-32.0); Mean Corpuscular Volume 88.6 fL (81-99); Mean Platelet Vol. 10.9 fl (6.2-12.0); Monocyte# 0.56 X10^3/uL; Monocyte% 11.5 % (0-10); NRBC Flagged by Analyzer 0 % (0-5); Neutrophil # 3.11 X10^3/uL (2.7-7.7); Neutrophil % 63.6 % (47-70); Platelet Count 170 K/mm3 (150-450); RBC Distribution Width CV 12.9 % (11.6-14.6); RBC Distribution Width SD 41.9 fl (35.1-43.9); Red Blood Count 4.13 M/mm3 (4.2-5.4); White Blood Count 4.9 K/mm3 (4.4-11.0)
[2022-08-02 11:54] LABS: HIV - WCH Non-Reactive (Nonreactive); Hepatitis B Surface Antigen Non-Reactive (Nonreactive); Hepatitis C Antibody Non-Reactive (Nonreactive); Rubella IgG Reactive (Nonreactive); Syphilis Antibodies Non-reactive
[2022-08-04 08:09] LABS: Chlamydia By Nucleic Acid AMP Negative (Negative)
[2022-08-05 19:11] LABS: Gonococcus By Nucleic Acid AMP Negative (Negative)
== END | disposition home or self-care (01) ==
LOC: LAB 09:29
PROVIDERS: PCP Family Medicine; Referring Provider Obstetrics & Gynecology; Visit Provider Obstetrics & Gynecology
DX: O09.90 Supervision of high risk pregnancy, unspecified, unspecified trimester (principal); Z3A.00 Weeks of gestation of pregnancy not specified
CPT/HCPCS: 36415; 80307; 85025; 86703; 86762; 86780; 86803; 86850; 86900; 86901; 87086; 87088; 87340; 87491; 87591

== ENCOUNTER → 2022-11-24 | Outpatient (CLI) | payer OTHER, SELFPAY ==
[2022-11-24 10:31] LABS: Absolute Lymphocyte Count 0.93 X10^3/uL (0.83-4.51); Absolute Neutrophil Count 3.9 X10^3/uL (2.0-7.7); Basophil# 0.01 X10^3/uL; Basophil% 0.2 % (0-1); Eosinophil# 0.02 X10^3/uL; Eosinophils% 0.4 % (0-5); Hematocrit 35.6 % (37-47); Hemoglobin 11.5 g/dL (12.0-15.0); Lymphocyte # 0.93 X10^3/ul (0.83-4.51); Lymphocyte % 16.9 % (19-41); Mean Corp Hgb Conc 32.3 g/dL (32-36); Mean Corpuscular Hgb 30.1 pg (27.0-32.0); Mean Corpuscular Volume 93.2 fL (81-99); Mean Platelet Vol. 10.1 fl (6.2-12.0); Monocyte# 0.62 X10^3/uL; Monocyte% 11.3 % (0-10); NRBC Flagged by Analyzer 0 % (0-5); Neutrophil # 3.91 X10^3/uL (2.7-7.7); Neutrophil % 70.8 % (47-70); Platelet Count 185 K/mm3 (150-450); RBC Distribution Width CV 13.2 % (11.6-14.6); RBC Distribution Width SD 44.7 fl (35.1-43.9); Red Blood Count 3.82 M/mm3 (4.2-5.4); White Blood Count 5.5 K/mm3 (4.4-11.0)
[2022-11-24 11:15] LABS: Glucose Challenge Gest 1H 50g 88 mg/dL (70-140)
[2022-11-24 11:47] LABS: HIV - WCH Non-Reactive (Nonreactive); Syphilis Antibodies Non-reactive
== END | disposition home or self-care (01) ==
LOC: PAVLAB 10:13
PROVIDERS: PCP Family Medicine; Referring Provider Obstetrics & Gynecology; Visit Provider Obstetrics & Gynecology
DX: O09.90 Supervision of high risk pregnancy, unspecified, unspecified trimester (principal); Z3A.00 Weeks of gestation of pregnancy not specified; Z13.1 Encounter for screening for diabetes mellitus
CPT/HCPCS: 36415; 82950; 85025; 86703; 86780

== ENCOUNTER → 2022-12-21 | Outpatient (CLI) | payer OTHER, SELFPAY ==
[2022-12-23 15:07] LABS: Dilute Prothrombin Time (dPT) 30.4 sec (0.0-47.6); Dilute Russell Viper Venom 29.9 sec (0.0-47.0); PTT-LA 32.3 sec (0.0-43.5); Thrombin Time 15.6 sec (0.0-23.0); dPT Confirm Ratio 1.04 Ratio (0.00-1.34)
[2022-12-23 16:06] LABS: Anti-Cardiolipin Ab, IgA, Qn < 9 APL U/mL (0-11); Anti-Cardiolipin Ab, IgG, Qn < 9 GPL U/mL (0-14); Anti-Cardiolipin Ab, IgM, Qn < 9 MPL U/mL (0-12); Beta-2-Glycoprotein I IgA <9 (0-25); Beta-2-Glycoprotein I IgG <9 (0-20); Beta-2-Glycoprotein I IgM <9 (0-32); Interpretation Comment: (.)
== END | disposition home or self-care (01) ==
LOC: PAVLAB 11:14
PROVIDERS: PCP Family Medicine; Referring Provider Obstetrics & Gynecology; Visit Provider Obstetrics & Gynecology
DX: N96 Recurrent pregnancy loss (principal)
CPT/HCPCS: 36415; 86146; 86147